=== PATIENT | male | born 1950 | race Asian ===

== ENCOUNTER 2018-06-10 01:19 | Emergency (ER) | payer MEDICARE, OTHER ==
[2018-06-11] MEDS ORDERED: LORazepam 2MG/ML-1ML VIAL ONE (04:33)
== END 2018-06-10 03:00 | disposition left against medical advice (07) ==
LOC: ER 01:19
DX: R56.9 Unspecified convulsions (principal); R06.02 Shortness of breath; Z53.21 Procedure and treatment not carried out due to patient leaving prior to being seen by health care provider